=== PATIENT | female | born 1960 | race Caucasian/White ===

== ENCOUNTER → 2020-05-04 | Outpatient (CLI) | payer BC | LOC: LAB 19:09 | DX: N30.01 Acute cystitis with hematuria (principal) ==

== ENCOUNTER → 2020-05-12 | Outpatient (CLI) | payer BC ==
[2020-05-12 13:55] LABS: CLUE CELLS OBSERVED (Not Observd)
== END ==
LOC: LAB 13:41
PROVIDERS: Nurse Practitioner
DX: R30.9 Painful micturition, unspecified (principal)
CPT/HCPCS: Q0111